=== PATIENT | female | born 1995 | race Two or more races ===

== ENCOUNTER 2020-03-31 15:41 | Inpatient (IN) | payer OTHER ==
[~2020-03-31] VITALS: Ht 157.5 cm; Wt 57.2 kg
[2020-03-31] MEDS ORDERED: PRENATAL TABLE1 EAC1 PO (22:26)
== END 2020-04-03 14:42 | disposition home or self-care (01) | DRG 805 ==
LOC: OB/GYN 15:41 → LDR 15:41 → OB/GYN 04-01 01:02
PROVIDERS: ADMIT Obstetrics & Gynecology; ATTEND Obstetrics & Gynecology
PROC: 4A1HXCZ Monitoring of Products of Conception, Cardiac Rate, External Approach (ICD-10-PCS; 2020-03-31)
PROC: 10E0XZZ Delivery of Products of Conception, External Approach (ICD-10-PCS; principal; 2020-04-01)
PROC: 0HQ9XZZ Repair Perineum Skin, External Approach (ICD-10-PCS; 2020-04-01)
DX: O70.0 First degree perineal laceration during delivery (principal); O60.14X0 Preterm labor third trimester with preterm delivery third trimester, not applicable or unspecified; Z37.0 Single live birth; Z3A.36 36 weeks gestation of pregnancy